=== PATIENT | male | born 1995 | race African-American/Black ===

== ENCOUNTER 2017-11-09 17:09 | Emergency (ER) | payer SELFPAY ==
[2017-11-09] MEDS ORDERED: ACETAMINOPHEN 500 MG TAB ONE (17:51)
--- NOTE | 2017-11-09 18:51 | EDPHYS ---
Physician Documentation [facility] Name: Freddy Leary Age: 22 yrs Sex: Male : 1995 Arrival Date: 11/09/2017 Time: 17:13 Bed 25 Private MD: TIBURCIO BARCLAY ED Physician Danis Mckeon HPI: 11/09 17:45 This 22 yrs old Black Male presents to ER via Ambulatory with complaints of BODY ACHES, cp Sore Throat. 17:45 The patient presents with sore throat, dysphagia, of both solids and liquids. cp 17:45 The patient describes throat pain as constant. Onset: The symptoms/episode cp began/occurred yesterday. Severity of symptoms: in the emergency department the symptoms are unchanged, despite home interventions. Associated signs and symptoms: Pertinent positives: fever, body aches, Pertinent negatives chest pain, cough, vomiting. Historical: - Allergies: 17:26 No Known Allergies; aj - Home Meds: 17:26 lisinopril Oral [Active]; aj - PMHx: 17:26 Hypertension; aj - PSHx: 17:26 None; aj - Immunization history:: Adult Immunizations up to date. - Social history:: Smoking status: Patient/guardian denies using tobacco. - Ebola Screening: : Patient negative for fever greater than or equal to 101.5 degrees Fahrenheit, and additional compatible Ebola Virus Disease symptoms Patient denies exposure to infectious person Patient denies travel to an Ebola-affected area in the 21 days before illness onset No symptoms or risks identified at this time. ROS: 17:58 Constitutional: Positive for fever, Negative for body aches, poor PO intake. cp 17:58 Eyes: Negative for injury, pain, redness, and discharge. cp 17:58 ENT: Positive for difficulty swallowing, hoarseness, sore throat, Negative for drainage from ear(s), ear pain, difficulty handling secretions. 17:58 Neck: Negative for pain with movement, pain at rest, stiffness. 17:58 Cardiovascular: Negative for chest pain. 17:58 Respiratory: Negative for cough, shortness of breath, wheezing. 17:58 Abdomen/GI: Negative for abdominal pain, vomiting, diarrhea, constipation. 17:58 Skin: Negative for cellulitis, rash. 17:58 Neuro: Negative for altered mental status, dizziness, headache, weakness. 17:58 All other systems are negative. Exam: 18:05 Constitutional: The patient appears in no acute distress, alert, awake, non-toxic, well cp developed, well nourished. 18:05 Head/Face: Normocephalic, atraumatic. cp 18:05 Eyes: Periorbital structures: appear normal, Conjunctiva: normal, no exudate, no injection, Sclera: no appreciated abnormality, Lids and lashes: appear normal, bilaterally. 18:05 ENT: External ear(s): are unremarkable, Ear canal(s): are normal, clear, TM's: bulging, is not appreciated, bilaterally, dullness, bilaterally, erythema, is not appreciated, bilaterally, Nose: is normal, Mouth: Lips: moist, Oral mucosa: moist, Posterior pharynx: Airway: no evidence of obstruction, patent, Tonsils: bilaterally enlarged, with erythema, with exudate, Uvula: midline, erythema, that is moderate, Voice: is hoarse. 18:05 Neck: ROM/movement: is normal, is supple, no range of motions limitations, no meningismus, no nuchal rigidity. 18:05 Chest/axilla: Inspection: normal, Palpation: is normal, no crepitus, no tenderness. 18:05 Cardiovascular: Rate: tachycardic, Rhythm: regular. 18:05 Respiratory: the patient does not display signs of respiratory distress, Respirations: normal, no use of accessory muscles, no retractions, no splinting, no tachypnea, labored breathing, is not present, Breath sounds: are clear throughout, no decreased breath sounds, no stridor, no wheezing. 18:05 Abdomen/GI: Inspection: abdomen appears normal, Palpation: abdomen is soft and non-tender, in all quadrants, rebound tenderness, is not appreciated, voluntary guarding, is not appreciated, involuntary guarding, is not appreciated. 18:05 Skin: cellulitis, is not appreciated, no rash present. Vital Signs: 17:26 BP 156 / 100; Pulse 116; Resp 20; Temp 101.3; Pulse Ox 99% on R/A; Weight 108.86 kg; aj Height 6 ft. 0 in. (182.88 cm); 18:54 BP 148 / 88; Pulse 115; Resp 18; Pulse Ox 99% ; tl3 17:26 Body Mass Index 32.55 (108.86 kg, 182.88 cm) MDM: 17:28 Patient medically screened. cp 18:00 Differential diagnosis: cornelio-cisneros virus, luna's angina, mononucleosis, cp pharyngitis, tonsillitis, uvulitis. 18:48 Data reviewed: vital signs, nurses notes, lab test result(s), and as a result, I will cp discharge patient. 18:48 Response to treatment: the patient's symptoms have mildly improved after treatment, and cp as a result, I will discharge patient. 11/09 17:28 Order name: Strep; Complete Time: 18:02 11/09 18:02 Interpretation: Reviewed. 11/09 18:04 Order name: Throat Culture EDRI 11/09 18:16 Order name: PO challenge; Complete Time: 19:19 cp 11/09 18:41 Order name: Vital Signs: please update to include temp; Complete Time: 19:19 cp Administered Medications: 17:52 Drug: Tylenol 1000 mg Route: PO; tl3 Disposition: 11/10 06:51 Co-signature as Attending Physician, Danis Mckeon MD I agree with the assessment and [facility] plan of care. Disposition: 11/09/17 18:50 Discharged to Home. Impression: Acute tonsillitis, unspecified. - Condition is Stable. - Discharge Instructions: Tonsillitis. - Prescriptions for Ibuprofen 800 mg Oral Tablet - take 1 tablet by ORAL route every 8 hours As needed take with food; 30 tablet. Augmentin 875- 125 mg Oral Tablet - take 1 tablet by ORAL route every 12 hours for 10 days; 20 tablet. - Medication Reconciliation Form, Thank You Letter, Antibiotic Education, Prescription Opioid Use, Work release form form. - Follow up: TIBURCIO BARCLAY; When: 48 Hours; Reason: Recheck today's complaints. - Problem is new. - Symptoms have improved. Signatures: Dispatcher [employer] EDRI Anna Jameson RN RN aj Anderson, Corey, MD MD cha Page, Corey, PA PA cp Lowrey, Tammy, RN RN tl3 Corrections: (The following items were deleted from the chart) 11/09 19:17 18:50 11/09/2017 18:50 Discharged to Home. Impression: Acute tonsillitis, unspecified. tl3 Condition is Stable. Forms are Medication Reconciliation Form, Thank You Letter, Antibiotic Education, Prescription Opioid Use. Follow up: TIBURCIO BARCLAY; When: 48 Hours; Reason: Recheck today's complaints. Problem is new. Symptoms have improved. cp
--- NOTE | 2017-11-09 18:51 | ER ---
Nurse's Notes [facility] Name: Freddy Leary Age: 22 yrs Sex: Male : 1995 Arrival Date: 11/09/2017 Time: 17:13 Bed 25 Private MD: TIBURCIO BARCLAY Diagnosis: Acute tonsillitis, unspecified Presentation: 11/09 17:25 Presenting complaint: Patient states: Sore throat with white exudate on bilateral aj tonsils since yesterday. Transition of care: patient was not received from another setting of care. Onset of symptoms was November 08, 2017. Risk Assessment: Do you want to hurt yourself or someone else? Patient reports no desire to harm self or others. Initial Sepsis Screen: Does the patient meet any 2 criteria? No. Patient's initial sepsis screen is negative. Does the patient have a suspected source of infection? No. Patient's initial sepsis screen is negative. Care prior to arrival: None. 17:25 Method Of Arrival: Ambulatory aj 17:25 Acuity: AMY 4 aj Triage Assessment: 17:26 General: Appears in no apparent distress. uncomfortable, Behavior is calm, cooperative, aj appropriate for age. Pain: Complains of pain in left aspect of posterior pharynx and right aspect of posterior pharynx. EENT: Throat is reddened has patchy exudate has enlarged tonsils bilaterally Reports pain when swallowing. Respiratory: Airway is patent Respiratory effort is even, unlabored, Respiratory pattern is regular, symmetrical. Derm: Skin is intact, is healthy with good turgor, Skin is pink, warm \T\ dry. normal. Historical: - Allergies: 17:26 No Known Allergies; aj - Home Meds: 17:26 lisinopril Oral [Active]; aj - PMHx: 17:26 Hypertension; aj - PSHx: 17:26 None; aj - Immunization history:: Adult Immunizations up to date. - Social history:: Smoking status: Patient/guardian denies using tobacco. - Ebola Screening: : Patient negative for fever greater than or equal to 101.5 degrees Fahrenheit, and additional compatible Ebola Virus Disease symptoms Patient denies exposure to infectious person Patient denies travel to an Ebola-affected area in the 21 days before illness onset No symptoms or risks identified at this time. Screenin:52 Abuse screen: Denies threats or abuse. Nutritional screening: No deficits noted. tl3 Tuberculosis screening: No symptoms or risk factors identified. Fall Risk None identified. Assessment: 17:52 General: Appears uncomfortable, slender, well groomed, well developed, well nourished, tl3 Behavior is calm, cooperative, appropriate for age. Pain: Complains of pain in mouth and right aspect of posterior pharynx and left aspect of posterior pharynx. Neuro: Level of Consciousness is awake, alert, obeys commands, Oriented to person, place, time, situation, Appropriate for age. Cardiovascular: Patient's skin is warm and dry. Respiratory: Airway is patent Respiratory effort is even, unlabored, Respiratory pattern is regular, symmetrical. GI: No deficits noted. : No deficits noted. EENT: Throat is reddened for two days. Derm: No signs and/or symptoms reported regarding the dermatologic system. Musculoskeletal: No signs and/or symptoms reported regarding the musculoskeletal system. 18:54 Reassessment: Patient appears in no apparent distress at this time. No changes from tl3 previously documented assessment. Patient and/or family updated on plan of care and expected duration. Pain level reassessed. Patient is alert, oriented x 3, equal unlabored respirations, skin warm/dry/pink. pt feeling better since fever has resolved. General:. 19:18 Respiratory: Breath sounds are clear bilaterally. tl3 Vital Signs: 17:26 BP 156 / 100; Pulse 116; Resp 20; Temp 101.3; Pulse Ox 99% on R/A; Weight 108.86 kg; aj Height 6 ft. 0 in. (182.88 cm); 18:54 BP 148 / 88; Pulse 115; Resp 18; Pulse Ox 99% ; tl3 17:26 Body Mass Index 32.55 (108.86 kg, 182.88 cm) ED Course: 17:13 Patient arrived in ED. 4 17:13 TIBURCIO BARCLAY is Private Physician. 4 17:26 Triage completed. aj 17:26 Arm band placed on left wrist. Patient placed in an exam room. Labs ordered per protocol. 17:28 Danis Hernandez PA is PHCP. cp 17:28 Danis Mckeon MD is Attending Physician. cp 17:47 Anni Steward RN is Primary Nurse. tl3 17:52 Patient has correct armband on for positive identification. Bed in low position. Call tl3 light in reach. Side rails up X 1. Adult w/ patient. Door closed. Lights dimmed. Warm blanket given. 17:52 No provider procedures requiring assistance completed. Patient did not have IV access tl3 during this emergency room visit. 18:50 TIBURCIO BARCLAY is Referral Physician. cp 19:19 Throat Culture Sent. tl3 Administered Medications: 17:52 Drug: Tylenol 1000 mg Route: PO; tl3 Outcome: 18:50 Discharge ordered by MD. cp 19:17 Patient left the ED. tl3 19:18 Discharged to home ambulatory. tl3 19:18 Condition: stable 19:18 Discharge instructions given to patient, family, Instructed on discharge instructions, follow up and referral plans. medication usage, Demonstrated understanding of instructions, follow-up care, medications, Prescriptions given X 2. Signatures: Anna Jameson RN RN Danis Valdes PA PA cp Garcia, Rubi rg4 Anni Steward RN RN tl3 Corrections: (The following items were deleted from the chart) 17:56 17:52 EENT: Throat is reddened tl3 tl3
== END 2017-11-09 19:17 | disposition home or self-care (01) ==
LOC: ER 17:09
DX: J03.90 Acute tonsillitis, unspecified (principal); I10 Essential (primary) hypertension
CPT/HCPCS: 87070; 87081; 99283

== ENCOUNTER 2018-03-06 14:55 | Emergency (ER) | payer SELFPAY ==
[2018-03-06] MEDS ORDERED: PROMETHAZINE 25 MG/ML VIAL ONE ×2 (16:30→16:35)
[2018-03-06] MEDS ORDERED: KETOROLAC 30 MG/ML INJ ONE ×2 (16:31→16:33)
--- NOTE | 2018-03-06 16:45 | ER ---
Nurse's Notes [facility] Name: Freddy Leary Age: 22 yrs Sex: Male : 1995 Arrival Date: 03/06/2018 Time: 14:59 Bed 10 Private MD: TIBURCIO BARCLAY Diagnosis: Essential (primary) hypertension;Acute contact otitis externa Presentation: 03/06 15:13 Presenting complaint: Patient states: "I've been taking Aleve for left ear pain but my aa5 blood pressure has been high so I started taking my Lisinopril again". Pt reports last dose of Lisinopril was today at 1000. Pt states "I have a headache and I am dizzy". Transition of care: patient was not received from another setting of care. Onset of symptoms was March 06, 2018. Risk Assessment: Do you want to hurt yourself or someone else? Patient reports no desire to harm self or others. Initial Sepsis Screen: Does the patient meet any 2 criteria? No. Patient's initial sepsis screen is negative. Does the patient have a suspected source of infection? No. Patient's initial sepsis screen is negative. Care prior to arrival: None. 15:13 Method Of Arrival: Ambulatory aa5 15:13 Acuity: AMY 3 aa5 Historical: - Allergies: 15:15 No Known Allergies; aa5 - PMHx: 15:15 Hypertension; aa5 - PSHx: 15:15 None; aa5 - Immunization history:: Adult Immunizations up to date. - Social history:: Smoking status: Patient/guardian denies using tobacco. - Ebola Screening: : No symptoms or risks identified at this time. Screenin:25 Abuse screen: Denies threats or abuse. Denies injuries from another. Nutritional sg screening: No deficits noted. Tuberculosis screening: No symptoms or risk factors identified. Never had TB. Fall Risk None identified. Assessment: 15:50 General: Appears in no apparent distress. comfortable, well groomed, well developed, sg well nourished, Behavior is calm, cooperative, appropriate for age. Pain: Complains of pain in right ear Quality of pain is described as throbbing. Neuro: No deficits noted. Cardiovascular: Patient's skin is warm and dry. Chest pain is denied. Respiratory: Respiratory effort is even, unlabored, Respiratory pattern is regular, symmetrical. GI: No signs and/or symptoms were reported involving the gastrointestinal system. : No signs and/or symptoms were reported regarding the genitourinary system. EENT: Ear canal clear on right ear and left ear Oral mucosa is moist. Throat is pink Reports pain in right ear. Derm: No signs and/or symptoms reported regarding the dermatologic system. Musculoskeletal: No signs and/or symptoms reported regarding the musculoskeletal system. Vital Signs: 15:15 BP 164 / 95; Pulse 96; Resp 18 S; Temp 97.6(TE); Pulse Ox 99% on R/A; Weight 108.86 kg aa5 (R); Height 6 ft. 0 in. (182.88 cm) (R); Pain 8/10; 15:15 Body Mass Index 32.55 (108.86 kg, 182.88 cm) aa5 ED Course: 14:59 Patient arrived in ED. mr 15:00 TIBURCIO BARCLAY is Private Physician. mr 15:14 Triage completed. aa5 15:14 Arm band placed on. aa5 15:29 James Jean-Baptiste RN is Primary Nurse. sg 15:37 [facility] snw 15:37 Danis Mckeon MD is Attending Physician. snw 16:40 No provider procedures requiring assistance completed. Strep swab sent to lab. Patient sg did not have IV access during this emergency room visit. Administered Medications: 16:42 Drug: Phenergan 25 mg Route: IM; Site: right deltoid; sg 17:01 Follow up: Response: No adverse reaction sg 16:42 Drug: TORadol 60 mg Route: IM; Site: left deltoid; sg 17:01 Follow up: Response: No adverse reaction sg Outcome: 16:45 Discharge ordered by . snw 17:32 Patient left the ED. sg Signatures: James Jean-Baptiste RN RN sg Therrien, Shelly, FNP-C FNP-Akosua GarveyaPricilla Audri, RN RN aa5
--- NOTE | 2018-03-06 16:45 | EDPHYS ---
Physician Documentation [facility] Name: Freddy Leary Age: 22 yrs Sex: Male : 1995 Arrival Date: 03/06/2018 Time: 14:59 Bed 10 Private MD: TIBURCIO BARCLAY ED Physician Danis Mckeon HPI: 03/06 17:00 This 22 yrs old Black Male presents to ER via Ambulatory with complaints of Ear Pain, snw Dizziness, High Blood Pressure. 17:00 The patient presents with pain, moderate, tenderness. The complaints affect the left snw ear. Onset: The symptoms/episode began/occurred 3 day(s) ago, and became persistent. Associated signs and symptoms: Pertinent positives: increased blood pressure, lightheadedness. Severity of symptoms: At their worst the symptoms were moderate. It is unknown whether or not the patient has had similar symptoms in the past. Pt had not been taking his Lisinopril. Restarted it today and states he has plenty at home to get to an appt with PCP. Historical: - Allergies: 15:15 No Known Allergies; aa5 - PMHx: 15:15 Hypertension; aa5 - PSHx: 15:15 None; aa5 - Immunization history:: Adult Immunizations up to date. - Social history:: Smoking status: Patient/guardian denies using tobacco. - Ebola Screening: : No symptoms or risks identified at this time. ROS: 16:59 Constitutional: Negative for fever, chills, and weight loss, Eyes: Negative for injury, snw pain, redness, and discharge. 16:59 Neck: Negative for injury, pain, and swelling, Cardiovascular: Negative for chest pain, palpitations, and edema, Respiratory: Negative for shortness of breath, cough, wheezing, and pleuritic chest pain, Abdomen/GI: Negative for abdominal pain, nausea, vomiting, diarrhea, and constipation, Back: Negative for injury and pain, : Negative for injury, bleeding, discharge, and swelling, MS/Extremity: Negative for injury and deformity, Skin: Negative for injury, rash, and discoloration. 16:59 ENT: Positive for ear pain. 16:59 Neuro: Positive for headache, increased blood pressure. Exam: 16:57 Constitutional: This is a well developed, well nourished patient who is awake, alert, snw and in no acute distress. Head/Face: Normocephalic, atraumatic. Eyes: Pupils equal round and reactive to light, extra-ocular motions intact. Lids and lashes normal. Conjunctiva and sclera are non-icteric and not injected. Cornea within normal limits. Periorbital areas with no swelling, redness, or edema. Neck: Trachea midline, no thyromegaly or masses palpated, and no cervical lymphadenopathy. Supple, full range of motion without nuchal rigidity, or vertebral point tenderness. No Meningismus. Chest/axilla: Normal chest wall appearance and motion. Nontender with no deformity. No lesions are appreciated. Cardiovascular: Regular rate and rhythm with a normal S1 and S2. No gallops, murmurs, or rubs. Normal PMI, no JVD. No pulse deficits. Respiratory: Lungs have equal breath sounds bilaterally, clear to auscultation and percussion. No rales, rhonchi or wheezes noted. No increased work of breathing, no retractions or nasal flaring. Abdomen/GI: Soft, non-tender, with normal bowel sounds. No distension or tympany. No guarding or rebound. No evidence of tenderness throughout. Back: No spinal tenderness. No costovertebral tenderness. Full range of motion. Skin: Warm, dry with normal turgor. Normal color with no rashes, no lesions, and no evidence of cellulitis. MS/ Extremity: Pulses equal, no cyanosis. Neurovascular intact. Full, normal range of motion. Neuro: Awake and alert, GCS 15, oriented to person, place, time, and situation. Cranial nerves II-XII grossly intact. Motor strength 5/5 in all extremities. Sensory grossly intact. Cerebellar exam normal. Normal gait. Psych: Awake, alert, with orientation to person, place and time. Behavior, mood, and affect are within normal limits. 16:57 ENT: TM's: not visable, because of cerumen, because of discharge, to left, Examination of the other ear shows no obvious abnormality, Nose: is normal, Mouth: is normal, Posterior pharynx: erythema, that is mild, that is moderate, Voice: is normal. Vital Signs: 15:15 BP 164 / 95; Pulse 96; Resp 18 S; Temp 97.6(TE); Pulse Ox 99% on R/A; Weight 108.86 kg aa5 (R); Height 6 ft. 0 in. (182.88 cm) (R); Pain 8/10; 15:15 Body Mass Index 32.55 (108.86 kg, 182.88 cm) aa5 MDM: 15:44 Patient medically screened. monster 16:58 Data reviewed: vital signs, nurses notes. Data interpreted: Pulse oximetry: on room air snw is 99 %. Interpretation: normal. Counseling: I had a detailed discussion with the patient and/or guardian regarding: the historical points, exam findings, and any diagnostic results supporting the discharge/admit diagnosis, the presence of at least one elevated blood pressure reading (>120/80) during this emergency department visit, lab results, the need for outpatient follow up, to return to the emergency department if symptoms worsen or persist or if there are any questions or concerns that arise at home. Special discussion: I have referred the patient to see his PCP for further evaluation of high blood pressure. Based on the history and exam findings, there is no indication for further emergent testing or inpatient evaluation. I discussed with the patient/guardian the need to see the ENT specialist for further evaluation of the symptoms. I discussed with the patient/guardian the need to see the primary care provider for further evaluation of the symptoms. 03/06 16:11 Order name: Strep; Complete Time: 17:02 snw 03/06 16:58 Order name: Throat Culture EDMS Administered Medications: 16:42 Drug: Phenergan 25 mg Route: IM; Site: right deltoid; sg 17:01 Follow up: Response: No adverse reaction sg 16:42 Drug: TORadol 60 mg Route: IM; Site: left deltoid; sg 17:01 Follow up: Response: No adverse reaction sg Disposition: 17:55 Co-signature as Attending Physician, Danis Mckeon MD I agree with the assessment and [facility] plan of care. Disposition: 03/06/18 16:45 Discharged to Home. Impression: Essential (primary) hypertension, Acute contact otitis externa. - Condition is Stable. - Discharge Instructions: Otitis Externa, Hypertension, How to Take Your Blood Pressure, Ansp-gh-Sduv, DASH Eating Plan, Rehydration, Adult, Heat Therapy, Managing Your Hypertension. - Prescriptions for Ciprodex 0.3- 0.1 % Otic Drops, Suspension - instill 4 drop by OTIC route every 12 hours for 7 days , for ears ONLY; 1 Container. Tylenol- Codeine #3 300-30 mg Oral Tablet - take 2 tablet by ORAL route every 6 hours As needed; 6 tablet. - Work release form, Medication Reconciliation Form, Thank You Letter, Antibiotic Education, Prescription Opioid Use form. - Follow up: Private Physician; When: 2 - 3 days; Reason: Recheck today's complaints, Continuance of care, Re-evaluation by your physician. Follow up: Emergency Department; When: As needed; Reason: Worsening of condition. - Notes: Please continue Lisinopril as directed Signatures: Dispatcher [employer] EDMS James Jean-Baptiste RN RN Danis Lauren MD MD cha Therrien, Shelly, CONTACT CENTER REP-C CONTACT CENTER REP-Csnw Keyla Arango, RN RN aa5 Corrections: (The following items were deleted from the chart) 17:32 16:45 03/06/2018 16:45 Discharged to Home. Impression: Essential (primary) sg hypertension; Acute contact otitis externa. Condition is Stable. Forms are Medication Reconciliation Form, Thank You Letter, Antibiotic Education, Prescription Opioid Use. Follow up: Private Physician; When: 2 - 3 days; Reason: Recheck today's complaints, Continuance of care, Re-evaluation by your physician. Follow up: Emergency Department; When: As needed; Reason: Worsening of condition. snw
== END 2018-03-06 17:32 | disposition home or self-care (01) ==
LOC: ER 14:55
DX: H60.539 Acute contact otitis externa, unspecified ear (principal); I10 Essential (primary) hypertension
CPT/HCPCS: 87070; 87081; 96372; 99283; J2550

== ENCOUNTER 2018-12-20 20:40 | Emergency (ER) | payer SELFPAY ==
[2018-12-20] MEDS ORDERED: KETOROLAC 30 MG/ML INJ ONE (20:58)
--- NOTE | 2018-12-20 21:21 | EDPHYS ---
Physician Documentation [facility] Name: Freddy Leary Age: 23 yrs Sex: Male : 1995 Arrival Date: 12/20/2018 Time: 20:43 Bed 23 Private MD: ED Physician Dionicio Todd HPI: 12/20 21:32 This 23 yrs old Black Male presents to ER via Ambulatory with complaints of Back Pain. kb 21:32 The patient presents with pain that is acute. The symptoms are located in the low back. kb Onset: The symptoms/episode began/occurred today. The pain does not radiate. Associated signs and symptoms: The patient has no apparent associated signs or symptoms. The problem was sustained when lifting heavy object. Modifying factors: The patient symptoms are alleviated by nothing, the patient symptoms are aggravated by any movement. Severity of symptoms: At their worst the symptoms were mild, moderate, in the emergency department the symptoms are unchanged. The patient has not experienced similar symptoms in the past. The patient has not recently seen a physician. Pt reports low back pain after lifting a heavy pipe multiple times today at work. Historical: - Allergies: 20:59 No Known Allergies; ss - Home Meds: 20:59 None [Active]; ss - PMHx: 20:59 Hypertension; ss - PSHx: 20:59 None; ss - Immunization history:: Adult Immunizations up to date. - Social history:: Smoking status: Patient/guardian denies using tobacco. - Ebola Screening: : Patient denies exposure to infectious person Patient denies travel to an Ebola-affected area in the 21 days before illness onset. ROS: 21:28 Constitutional: Negative for fever, chills, and weight loss, Cardiovascular: Negative kb for chest pain, palpitations, and edema, Respiratory: Negative for shortness of breath, cough, wheezing, and pleuritic chest pain, Abdomen/GI: Negative for abdominal pain, nausea, vomiting, diarrhea, and constipation, : Negative for injury, bleeding, discharge, and swelling, MS/Extremity: Negative for injury and deformity, Skin: Negative for injury, rash, and discoloration, Neuro: Negative for headache, weakness, numbness, tingling, and seizure. 21:28 Back: Positive for pain at rest, pain with movement, of the low back area. Exam: 21:30 Constitutional: This is a well developed, well nourished patient who is awake, alert, kb and in no acute distress. Head/Face: Normocephalic, atraumatic. Neck: Trachea midline, no thyromegaly or masses palpated, and no cervical lymphadenopathy. Supple, full range of motion without nuchal rigidity, or vertebral point tenderness. No Meningismus. Chest/axilla: Normal chest wall appearance and motion. Nontender with no deformity. No lesions are appreciated. Cardiovascular: Regular rate and rhythm with a normal S1 and S2. No gallops, murmurs, or rubs. Normal PMI, no JVD. No pulse deficits. Respiratory: Lungs have equal breath sounds bilaterally, clear to auscultation and percussion. No rales, rhonchi or wheezes noted. No increased work of breathing, no retractions or nasal flaring. Abdomen/GI: Soft, non-tender, with normal bowel sounds. No distension or tympany. No guarding or rebound. No evidence of tenderness throughout. Skin: Warm, dry with normal turgor. Normal color with no rashes, no lesions, and no evidence of cellulitis. MS/ Extremity: Pulses equal, no cyanosis. Neurovascular intact. Full, normal range of motion. Neuro: Awake and alert, GCS 15, oriented to person, place, time, and situation. Cranial nerves II-XII grossly intact. Motor strength 5/5 in all extremities. Sensory grossly intact. Cerebellar exam normal. Normal gait. 21:30 Back: pain, that is mild, of the low back area, ROM is normal, normal spinal alignment noted. Vital Signs: 20:55 BP 169 / 101; Pulse 94; Resp 18; Pulse Ox 95% ; ea 20:59 Weight 106.59 kg; Height 6 ft. 0 in. (182.88 cm); Pain 8/10; ss 20:59 Body Mass Index 31.87 (106.59 kg, 182.88 cm) ss MDM: 20:52 Patient medically screened. kb 21:27 Data reviewed: vital signs, nurses notes. Data interpreted: Pulse oximetry: on room air kb is 95 %. Interpretation: normal. Counseling: I had a detailed discussion with the patient and/or guardian regarding: the historical points, exam findings, and any diagnostic results supporting the discharge/admit diagnosis, the need for outpatient follow up, a family practitioner, to return to the emergency department if symptoms worsen or persist or if there are any questions or concerns that arise at home. Administered Medications: 21:02 Drug: TORadol 30 mg Route: IM; Site: right deltoid; ea 21:30 Follow up: Response: No adverse reaction; Pain is decreased ea Disposition: 12/21 02:22 Co-signature as Attending Physician, Dionicio Todd MD. rn Disposition: 12/20/18 21:20 Discharged to Home. Impression: Low back pain. - Condition is Stable. - Discharge Instructions: Back Injury Prevention, [id number], Back Pain, Adult, [id number], Back Exercises, [id number]. - Prescriptions for Cyclobenzaprine 10 mg Oral Tablet - take 1 tablet by ORAL route every 8 hours As needed; 21 tablet. Diclofenac Sodium 75 mg Oral Tablet, Delayed Release (E.C.) - take 1 tablet by ORAL route 2 times per day As needed; 30 tablet. - Medication Reconciliation Form, Thank You Letter, Antibiotic Education, Prescription Opioid Use, Family Work Release, Work release form form. - Follow up: Emergency Department; When: As needed; Reason: Worsening of condition. Follow up: Private Physician; When: 2 - 3 days; Reason: Recheck today's complaints, Continuance of care, Re-evaluation by your physician. Signatures: Patricia Araiza, [employer]-C [employer]-Dionicio Bautista MD MD rn Smirch, Shelby, RN RN ss Antunez, Elena, RN RN ea Corrections: (The following items were deleted from the chart) 12/20 21:45 21:20 12/20/2018 21:20 Discharged to Home. Impression: Low back pain. Condition is ea Stable. Forms are Medication Reconciliation Form, Thank You Letter, Antibiotic Education, Prescription Opioid Use. Follow up: Emergency Department; When: As needed; Reason: Worsening of condition. Follow up: Private Physician; When: 2 - 3 days; Reason: Recheck today's complaints, Continuance of care, Re-evaluation by your physician. kb
--- NOTE | 2018-12-20 21:21 | ER ---
Nurse's Notes [facility] Name: Freddy Leary Age: 23 yrs Sex: Male : 1995 Arrival Date: 12/20/2018 Time: 20:43 Bed 23 Private MD: Diagnosis: Low back pain Presentation: 12/20 20:57 Presenting complaint: Patient states: low back pain after picking up a heavy pipe today ss at work. Transition of care: patient was not received from another setting of care. Onset of symptoms was December 20, 2018. Risk Assessment: Do you want to hurt yourself or someone else? Patient reports no desire to harm self or others. Initial Sepsis Screen: Does the patient meet any 2 criteria? No. Patient's initial sepsis screen is negative. Does the patient have a suspected source of infection? No. Patient's initial sepsis screen is negative. Care prior to arrival: None. 20:57 Method Of Arrival: Ambulatory ss 20:57 Acuity: AMY 5 ss Historical: - Allergies: 20:59 No Known Allergies; ss - Home Meds: 20:59 None [Active]; ss - PMHx: 20:59 Hypertension; ss - PSHx: 20:59 None; ss - Immunization history:: Adult Immunizations up to date. - Social history:: Smoking status: Patient/guardian denies using tobacco. - Ebola Screening: : Patient denies exposure to infectious person Patient denies travel to an Ebola-affected area in the 21 days before illness onset. Screenin:05 Abuse screen: Denies threats or abuse. Nutritional screening: No deficits noted. ea Tuberculosis screening: No symptoms or risk factors identified. Fall Risk None identified. Assessment: 21:04 General: Appears uncomfortable, Behavior is calm, cooperative, appropriate for age. ea Pain: Complains of pain in back. Neuro: Level of Consciousness is awake, alert, obeys commands, Oriented to person, place, time, situation. Respiratory: Airway is patent Respiratory effort is even, unlabored, Respiratory pattern is regular, symmetrical. Derm: Skin is pink, warm \T\ dry. 21:43 Reassessment: Patient and/or family updated on plan of care and expected duration. Pain ea level reassessed. Patient is alert, oriented x 3, equal unlabored respirations, skin warm/dry/pink. Discharge instruction given to patient, verbalized the understanding of instruction. Pt left ED ambulatory, pt tolerating well Patient states feeling better. Vital Signs: 20:55 BP 169 / 101; Pulse 94; Resp 18; Pulse Ox 95% ; ea 20:59 Weight 106.59 kg; Height 6 ft. 0 in. (182.88 cm); Pain 8/10; ss 20:59 Body Mass Index 31.87 (106.59 kg, 182.88 cm) ED Course: 20:43 Patient arrived in ED. ag3 20:51 Patricia Araiza FNP-C is [facility]. kb 20:51 Dionicio Todd MD is Attending Physician. kb 20:55 Apolonia Anthony, AMINAH is Primary Nurse. ea 20:58 Triage completed. ss 20:59 Arm band placed on right wrist. ss 21:06 Patient has correct armband on for positive identification. Bed in low position. Call ea light in reach. 21:44 No provider procedures requiring assistance completed. Patient did not have IV access ea during this emergency room visit. Administered Medications: 21:02 Drug: TORadol 30 mg Route: IM; Site: right deltoid; ea 21:30 Follow up: Response: No adverse reaction; Pain is decreased ea Outcome: 21:20 Discharge ordered by . kb 21:44 Discharged to home ambulatory. ea 21:44 Condition: improved 21:44 Discharge instructions given to patient, Instructed on discharge instructions, follow up and referral plans. medication usage, Demonstrated understanding of instructions, follow-up care, medications, Prescriptions given X 2. 21:45 Patient left the ED. ea Signatures: Patricia Araiza FNP-C FNP-Ckb Smirch, Shelby, RN RN Apolonia Anthony, RN RN Carine Coon ag3
== END 2018-12-20 21:45 | disposition home or self-care (01) ==
LOC: ER 20:40
DX: M54.5 Low back pain (principal); I10 Essential (primary) hypertension
CPT/HCPCS: 96372; 99283

== ENCOUNTER 2020-04-07 13:53 | Emergency (ER) | payer SELFPAY ==
--- OUTSIDE RECORDS SUMMARY | 2020-04-07 14:40 | XMS REPORT | Summary of Care ---
:1995 Author Organization [facility] Address [address] [place] [address] Care Team Providers Name Role Phone Pcp, Does Not Have A Primary Care Provider Reason for Referral MRI/CAT Scan (STAT) Status Reason Specialty Diagnoses / Referred By Referred To Procedures Contact Contact New Request Diagnostic Diagnoses Laceration of scalp, initial encounter Danish Black Radiology Procedures CT HEAD WO CONTRAST MD Radha [address] [address] Reason for Visit Reason Comments Laceration Auth/Cert Status Reason Specialty Diagnoses / Referred By Referred To Procedures Contact Contact Emergency Medicine Diagnoses head laceration [facility] Emergency Dept [address] [place] [address] Fax: Encounter Details Date Type Department Care Team Description 04/04/2020 Emergency [facility]Emergency Danish Black Laceratio n of scalp, initial encounter (Primary Dx); Department Contusion of scalp, initial encounter [address] [place] [address] [id number] [place], [place] [id number] Allergies No Known Allergiesdocumented as of this encounter (statuses as of 04/04/2020) Medications Medication Sig Dispensed Refills Start Date End Date Status ibuprofen 800 mg Take 1 tablet by 20 tablet 0 05/22/2019 Active tabletIndications: mouth every 8 Sore throat, Strep (eight) hours as pharyngitis needed for Pain (scale 4-6) or Temp > 38.5 C. amoxicillin 500 mg Take 1 capsule by 20 capsule 0 05/22/2019 Active capsuleIndications: mouth 3 (three) Sore throat, Strep times daily. pharyngitis ibuprofen 800 mg Take 1 tablet by 21 tablet 0 04/04/2020 Active tabletIndications: mouth every 8 Laceration of scalp, (eight) hours as initial encounter, needed for Pain Contusion of scalp, (scale 4-6). initial encounter documented as of this encounter (statuses as of 04/04/2020) Active Problems No known active problemsdocumented as of this encounter (statuses as of 04/04/2020) Immunizations Name Administration Dates Next Due Td 04/04/2020 documented as of this encounter Social History Tobacco Use Types Packs/Day Years Used Date Never Assessed Sex Assigned at Date Recorded Not on file COVID-19 Exposure Response Date Recorded In the last month, have you been in contact with No / Unsure 04/04/2020 1:19 AM MARINE CONSULTANT someone who was confirmed or suspected to have Coronavirus / COVID-19? documented as of this encounter Last Filed Vital Signs Vital Sign Reading Time Taken Comments Blood Pressure 160/88 04/04/2020 1:21 AM MARINE CONSULTANT Pulse 138 04/04/2020 1:21 AM MARINE CONSULTANT Temperature 37.4 C (99.3 F) 04/04/2020 1:22 AM MARINE CONSULTANT Respiratory Rate 20 04/04/2020 1:21 AM MARINE CONSULTANT Oxygen Saturation 96% 04/04/2020 1:21 AM MARINE CONSULTANT Inhaled Oxygen Concentration - - Weight 108.9 kg (240 lb) 04/04/2020 1:21 AM MARINE CONSULTANT Height 182.9 cm (6') 04/04/2020 1:21 AM MARINE CONSULTANT Body Mass Index 32.55 04/04/2020 1:21 AM MARINE CONSULTANT documented in this encounter Discharge Instructions Danish Cruz MD - 04/04/2020 DIAGNOSIS Diagnoses that have been ruled out: None Diagnoses that are still under consideration: None Final diagnoses: Laceration of scalp, initial encounter Contusion of scalp, initial encounter NO LIFE-THREATENING FINDINGS ON TODAY'S EXAM. PROCEDURES IN THE ER TODAY: Orders Placed This Encounter Procedures Laceration Repair CT HEAD WO CONTRAST MEDICATIONS ADMINISTERED IN THE ER TODAY AND DISCHARGE MEDICATIONS: Orders Placed This Encounter Medications tetanus-diphtheria toxoids (TENIVAC) 5-2 Lf unit/0.5 mL injection 0.5 mL ibuprofen 800 mg tablet FOLLOW-UP RECOMMENDATIONS: RECOMMEND FOLLOW-UP WITH YOUR PRIMARY CARE PROVIDER OR SPECIALIST IN 5 TO 7 DAYS, FOR SUTURE REMOVALAS DISCUSSED MAY FOLLOW-UP WITH A PROVIDER OF YOUR CHOICE, SUCH : 1. A PHYSICIAN OF YOUR CHOICE 2. [facility], . LOCATIONS IN [facility] 3. [facility], [address] [place] [address]; [phone] OR, IF YOU WISH TO FOLLOW-UP WITHIN THE [facility], MAY TRY THESE OPTIONS (CLINIC APPOINTMENTS AVAILABLE ON [id number] BASIS): 1. SCHEDULE AN APPOINTMENT ONLINE AT [email or web address] 2. OR CALL THE [facility] AT OR 3. OR CALL YOUR [facility] PHYSICIAN'S OFFICE DIRECTLY IF YOU ARE ALREADY AN ESTABLISHED [facility] PATIENT. RETURN TO ER FOR WORSENING OF SYMPTOMS AttachmentsThe following attachments cannot be sent through Care Everywhere. Scalp Contusion (Telugu)Laceration: All Closures (Telugu)documented in this encounter ED Notes Carolina Reynoso RN - 04/04/2020 1:19 AM CSTPatient presents to the ED with a laceration approximately 8cm long to the right side of his head. Patient states that he was getting something from the garage and it the item fell and hit his head. Patient states that he "blacked out". Patient reports have 5 beers tonight. Patient A&Ox4. Bleedingcontrolled at this time. Denies neck pain. NE CONSULTANT Danish Black MD - 04/04/2020 1:11 AM CST [facility] Emergency Department Note Patient Name: Freddy Leary Date of : 1995 25 year old male Treatment Room: TR8/8 Primary Care Physician: PATIENT DOES NOT HAVE A PCP Patient Escorted by: Self [9] Mode of Arrival: Personal means [1] EMS Treatment Prior to ED Arrival: LIQUOR [employer]ER treatment: None Travel and Exposure Screening: Symptoms Does patient have any of these symptoms?: (not recorded) Exposure Screening Has patient had contact with someone with a communicable disease in the last month?: (not recorded) Diseases exposed to:: (not recorded) Is Patient ?: (not recorded) Exposure Date: (not recorded) Chief Complaint: Chief Complaint Patient presents with Laceration History of Present Illness: Freddy Leary is a 25 year old male who presented to the ED for evaluation of laceration sustained to right scalp when an 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 Denies any loss of consciousness but reports that he was 'dazed". No N/V. No REYNAGA. No AMS. No focal neurologic deficits Past Medical History/Immunizations: No past medical history on file. Tetanus received in last 5 years: No Allergies: No Known Allergies Past Social History: Substance & Sexual Activity No substance use or sexual activity history on file. Past Surgical History: No past surgical history on file. Review of Systems: Review of Systems Constitutional: Negative. HENT: Negative. Negative for facial swelling. Eyes: Negative. Respiratory: Negative. Breasts: Negative. Cardiovascular: Negative. Gastrointestinal: Negative. Genitourinary: Negative. Musculoskeletal: Negative. Negative for arthralgias, back pain, gait problem, joint swelling, myalgias, neck pain and neck stiffness. Skin: Positive for wound. Neurological: Negative. Negative for dizziness, tremors, seizures, syncope, facial asymmetry, speech difficulty, weakness, light-headedness, numbness and headaches. Psychiatric/Behavioral: Negative. Endocrine: Endocrine negative Physical Exam: ED Triage Vitals Weight 04/04/20 012 108.9 kg (240 lb) Actual or estimated 04/04/20120 Estimated by patient/family report Height 04/04/20120 1.829 m (6') BP 04/04/20 012 (!) 160/88 Pulse 04/04/20120 138 Resp 04/04/201 20 Temp 04/04/20 012 37.4 C (99.3 F) Temp source 04/04/20120 Oral SpO2 04/04/20120 96 % Measured on 04/04/20120 Room air Physical Exam Vitals signs and nursing note reviewed. Constitutional: General: He is not in acute distress. Appearance: He is well-developed. He is obese. He is not ill-appearing or diaphoretic. HENT: Head: Normocephalic. Comments: Has a gaping 8 cm laceration to right temporofrontal scalp with active bleeding Right Ear: Tympanic membrane, ear canal and external ear normal. Left Ear: Tympanic membrane, ear canal and external ear normal. Nose: Nose normal. No congestion or rhinorrhea. Mouth/Throat: Mouth: Mucous membranes are moist. Pharynx: Oropharynx is clear. No oropharyngeal exudate or posterior oropharyngeal erythema. Eyes: General: No scleral icterus. Right eye: No discharge. Left eye: No discharge. Extraocular Movements: Extraocular movements intact. Conjunctiva/sclera: Conjunctivae normal. Pupils: Pupils are equal, round, and reactive to light. Neck: Musculoskeletal: Normal range of motion and neck supple. Cardiovascular: Rate and Rhythm: Normal rate and regular rhythm. Pulses: Normal pulses. Heart sounds: Normal heart sounds. No murmur. No gallop. Pulmonary: Effort: Pulmonary effort is normal. No respiratory distress. Breath sounds: Normal breath sounds. No stridor. No wheezing, rhonchi or rales. Chest: Chest wall: No tenderness. Abdominal: General: Bowel sounds are normal. There is no distension. Palpations: Abdomen is soft. There is no mass. Tenderness: There is no abdominal tenderness. There is no right CVA tenderness, left CVA tenderness, guarding or rebound. Hernia: No hernia is present. Musculoskeletal: Normal range of motion. General: No swelling, tenderness, deformity or signs of injury. Right lower leg: No edema. Left lower leg: No edema. Skin: General: Skin is warm and dry. Capillary Refill: Capillary refill takes less than 2 seconds. Coloration: Skin is not jaundiced or pale. Findings: Bruising and lesion present. No erythema. Neurological: General: No focal deficit present. Mental Status: He is alert and oriented to person, place, and time. Cranial Nerves: No cranial nerve deficit. Sensory: No sensory deficit. Motor: No weakness. Coordination: Coordination normal. Gait: Gait normal. Deep Tendon Reflexes: Reflexes normal. Psychiatric: Behavior: Behavior normal. Thought Content: Thought content normal. Judgment: Judgment normal. Radiology: Hospital Encounter on 04/04/20 CT HEAD WO CONTRAST Narrative Ordering physician: DANISH BLACK Indication: Minor head trauma Comparison: None Technique: Axial images of the head were performed without administration of intravenous contrast material. CT scan was performed according to ALARA (as low as reasonably achievable) principles. Findings: No acute intracranial abnormality is appreciated. Specifically, there is no acute intracranial hemorrhage, mass, mass effect, extra-axial fluid collection or hydrocephalus. The visualized paranasal sinuses are clear. No middle ear or mastoid effusion is appreciated. There is no calvarial fracture. There is a subcutaneous hematoma and laceration in the right parietal scalp, without radiopaque foreign body. Impression Impression: No CT evidence for acute intracranial abnormality. Subcutaneous hematoma and laceration in the right parietal scalp without radiopaque foreign body. RL: [id number] AFC: [id number] Lab Results (24h): No results found for this or any previous visit (from the past 24 hour(s)). Orders and Treatments: Orders Placed This Encounter Procedures Laceration Repair CT HEAD WO CONTRAST Orders Placed This Encounter Medications tetanus-diphtheria toxoids (TENIVAC) 5-2 Lf unit/0.5 mL injection 0.5 mL ibuprofen 800 mg tablet ED COURSE MDM: Freddy Leary is a 25 year old male presenting to the ED with scalp laceration. See procedurenote for laceration repair Scoring Tools: No data recorded Diagnosis/Impression: ICD-10-CM ICD-9-CM 1. Laceration of scalp, initial encounter S01.01XA 873.0 2. Contusion of scalp, initial encounter S00.03XA 920 Disposition/Condition: ED Disposition ED Disposition Condition Comment Disch - Home Stable Discharge Medications: Patient's Medications START taking these medications IBUPROFEN 800 MG TABLET Take 1 tablet by mouth every 8 (eight) hours as needed for Pain (scale 4-6). CONTINUE taking these medications which have NOT CHANGED AMOXICILLIN 500 MG CAPSULE Take 1 capsule by mouth 3 (three) times daily. IBUPROFEN 800 MG TABLET Take 1 tablet by mouth every 8 (eight) hours as needed for Pain (scale 4-6) or Temp > 38.5 C. START taking Modified Medications as Prescribed No medications on file STOP taking these medications No medications on file Follow-up: Electronically signed by: Danish Black MD 04/04/2020 2:44 AM NE CONSULTANT documented in this encounter Miscellaneous Notes ED Nurse Note - Carolina Reynoso RN - 04/04/2020 3:13 AM CSTPt given printed and verbal discharge instructions regarding laceration of scalp and contusion of scalp, encouraged hydration, Prescriptions provided for Ibuprofen. Discussed ibuprofen and to take with food to avoid GI distress. Pt verbalized understanding of instructions, pt awake alert oriented, resp reg unlabored, skin w/d, color appropriate for race, moves all ext well,pt encouraged to follow up with pcp in 5-7 days for suture removal. Advised to seek medical attention for new/prolonged/worsening of symptoms, Symptoms were addressed. No adverse reaction to meds given in ER noted upon discharge Awake, alert oriented, resp reg unlabored, skin w/d, pt leaving amb with steady gait, in no apparent distress, D Procedure Note - Danish Black MD - 04/04/2020 2:52 AM CSTAssociated Order(s): Laceration RepairLaceration Repair Performed by: Danish Black MD Authorized by: Danish Black MD Consent: Consent obtained: Verbal Consent given by: Patient Risks discussed: Infection, nerve damage, need for additional repair, poor cosmetic result, pain,poor wound healing, retained foreign body, tendon damage and vascular damage Alternatives discussed: No treatment Anesthesia (see MAR for exact dosages): Anesthesia method: Local infiltration Local anesthetic: Lidocaine 1% WITH epi Laceration details: Location: Scalp Scalp location: R temporal Length (cm): 8 Repair type: Repair type: Intermediate Pre-procedure details: Preparation: Patient was prepped and draped in usual sterile fashion and imaging obtained to evaluate for foreign bodies Exploration: Hemostasis achieved with: Epinephrine and direct pressure Wound extent: areolar tissue violated, fascia violated, muscle damage and vascular damage Wound extent: no foreign bodies/material noted, no nerve damage noted, no tendon damage noted and no underlying fracture noted Contaminated: no Treatment: Area cleansed with: Hibiclens and saline Amount of cleaning: Extensive Irrigation solution: Sterile saline Irrigation volume: 1000 Irrigation method: Pressure wash Visualized foreign bodies/material removed: no Skin repair: Repair method: Sutures Suture size: 1-0 Suture material: Prolene Suture technique: Simple interrupted Number of sutures: 8 Approximation: Approximation: Loose Post-procedure details: Dressing: Non-adherent dressing Patient tolerance of procedure: Tolerated well, no immediate complications NE CONSULTANT documented in this encounter Plan of Treatment Health Maintenance Due Date Last Done Comments VARICELLA VACCINES (1 of - 1994 2-dose childhood series) Depression Screening 2005 DTaP,Tdap,and Td Vaccines (1 - 2012 04/04/2020 Tdap) INFLUENZA VACCINE (#1) 2020 PNEUMOCOCCAL 0-64 YEARS COMBINED Aged Out No longer eligible based on SERIES patient's age to complete this topic documented as of this encounter Procedures Procedure Name Priority Date/Time Associated Diagnosis Comme nts TN LAYR CLOS WND Routine 04/04/2020 2:52 AM Resu lts for this TRUNK,ARM,LEG MARINE CONSULTANT procedure are in 7.6-12.[address] HEAD WO CONTRAST STAT 04/04/2020 1:32 AM Laceration of scalp, Results for this MARINE CONSULTANT initial encounter procedure are in the results section. documented in this encounter Results Laceration Repair (04/04/2020 2:52 AM MARINE CONSULTANT) Narrative Performed At Danish Black MD 04/04/2020 2:52 AM Laceration Repair Performed by: Danish Black MD Authorized by: Danish Black MD Consent: Consent obtained: Verbal Consent given by: Patient Risks discussed: Infection, nerve damage, need fo r additional repair, poor cosmetic result, pain, poor wound h ealing, retained foreign body, tendon damage and vascular damage Alternatives discussed: No treatmen t Anesthesia (see MAR for exact dosages): Anesthesia method: Local infiltrati on Local anesthetic: Lidocaine 1% WITH epi Laceration details: Location: Scalp Scalp location: R temporal Length (cm): 8 Repair type: Repair type: Intermediate Pre-procedure details: Preparation: Patient was prepped and draped in us ual sterile fashion and imaging obtained to evaluate for for eign bodies Exploration: Hemostasis achieved with: Epinephri ne and direct pressure Wound extent: areolar tissue violated, fascia viola rachel, muscle damage and vascular damage Wound extent: no foreign bodies/material noted, no nerve damage noted, no tendon damage noted and no underlying fracture noted Contaminated: no Treatment: Area cleansed with: Hibiclens and s gregg Amount of cleaning: Extensive Irrigation solution: Sterile saline Irrigation volume: 1000 Irrigation method: Pressure wash Visualized foreign bodies/material re moved: no Skin repair: Repair method: Sutures Suture size: 1-0 Suture material: Prolene Suture technique: Simple interrupte d Number of sutures: 8 Approximation: Approximation: Loose Post-procedure details: Dressing: Non-adherent dressing Patient tolerance of procedure: Andrea erated well, no immediate complications CT HEAD WO CONTRAST (04/04/2020 1:32 AM MARINE CONSULTANT) Specimen Impressions Performed At Impression: PACS/VR/DOSE No CT evidence for acute intracranial ab normality. Subcutaneous hematoma and laceration in the right parietal scalp without radiopaque foreign body. RL: [id number] AFC: [id number] Narrative Performed At Ordering physician: ADNISH BLACK PACS/VR/DOSE Indication: Minor head trauma Comparison: None Technique: Axial images of the head were performed wit hout administration of intravenous contrast material. CT scan was performe d according to ALARA (as low as reasonably achievable) princi ples. Findings: No acute intracranial abnormality is appreci ated. Specifically, there is no acute intracranial hemorrhage, mass, mass effect, extra-axial fluid collection or hydrocephalus. The v isualized paranasal sinuses are clear. No middle ear or mastoid effusion is appreciated. There is no calvarial fracture. There is a subcutaneous hematoma a nd laceration in the right parietal scalp, without radiopaque foreign body. Procedure Note [facility], Radiant Results Inft User - 2019 1:55 AM MARINE CONSULTANT Ordering physician: DANISH BLACK Indication: Minor head trauma Comparison: None Technique: Axial images of the head were performed without administration of intravenous contrast material. CT sca n was performed according to ALARA (as low as reasonably achievable) princi ples. Findings: No acute intracranial abnormal ity is appreciated. Specifically, there is no acute intracranial hemorrhag e, mass, mass effect, extra-axial fluid collection or hydrocephalus. The v isualized paranasal sinuses are clear. No middle ear or mastoid effusion is appreciated. There is no calvarial fracture. There is a subcutane ous hematoma and laceration in the right parietal scalp, without radiopaque foreign body. IMPRESSION Impression: No CT evidence for acute intracranial ab normality. Subcutaneous hematoma and laceration in the right parietal scalp without radiopaque foreign body. RL: 460 AFC: [id number] Performing Organization Address City/State/Zipcode Phone Number PACS/VR/DOSE documented in this encounter Visit Diagnoses Diagnosis Laceration of scalp, initial encounter - Primary Contusion of scalp, initial encounter documented in this encounter Administered Medications Medication Order MAR Action Action Date Dose Rate Site tetanus-diphtheria Given 04/04/2020 1:32 AM 0.5 mL Left Deltoid-IM toxoids (TENIVAC) 5-2 Lf MARINE CONSULTANT unit/0.5 mL injection 0.5 mL 0.5 mL, Intramuscular, ONCE, 1 dose, Tue04/04/20 at 0230, Routine documented in this encounter
--- OUTSIDE RECORDS SUMMARY | 2020-04-07 14:40 | XMS REPORT | Continuity of Care Document ---
:1995 Author Organization [facility] t Address [address] [place] [address] Care Team Providers Name Role Phone Abbie NOLAN S Attending Clinician Problems This patient has no known problems. Allergies, Adverse Reactions, Alerts This patient has no known allergies or adverse reactions. Medications This patient has no known medications. Procedures This patient has no known procedures. Encounters Start End Encounter Admission Attending Care Care Encounter Source Date/Time Date/Time Type Type Clinicians Facility Department ID 2020-04-04 2020-04-04 Emergency [facility] [id number] 01:19:00 04:22:00 Danish Lundberg [id number] [place] [id number] [place] [id number] Results This patient has no known results.
--- NOTE | 2020-04-07 15:15 | ER ---
Nurse's Notes [facility] Name: Freddy Leary Age: 25 yrs Sex: Male : 1995 Arrival Date: 04/07/2020 Time: 13:55 Bed 14 Private MD: Diagnosis: Superficial injury of head;Concussion Presentation: 04/07 14:09 Chief complaint: Patient states: got stitches in his head on , was seen at [facility], wheel part fell on top of his head, had a CT done and was d/c home, now is having migraines and wants to have his wound checked , and he had fever last night. Coronavirus screen: fever, headache. Ebola Screen: Patient negative for fever greater than or equal to 101.5 degrees Fahrenheit, and additional compatible Ebola Virus Disease symptoms Patient denies exposure to infectious person. Patient denies travel to an Ebola-affected area in the 21 days before illness onset. No symptoms or risks identified at this time. Initial Sepsis Screen: Does the patient meet any 2 criteria? No. Patient's initial sepsis screen is negative. Does the patient have a suspected source of infection? No. Patient's initial sepsis screen is negative. Risk Assessment: Do you want to hurt yourself or someone else? Patient reports no desire to harm self or others. Onset of symptoms was April 07, 2020. 14:09 Method Of Arrival: Ambulatory iw 14:09 Acuity: AMY 4 iw 14:17 Coronavirus screen: pt states he was positive for COVID 3-4 months ago. iw Historical: - Allergies: 14:13 No Known Allergies; iw - PMHx: 14:13 Hypertension; iw - PSHx: 14:13 None; iw - Immunization history:: Adult Immunizations. - Social history:: Smoking status: . Screenin:27 Abuse screen: Denies threats or abuse. Nutritional screening: No deficits noted. tw2 Tuberculosis screening: No symptoms or risk factors identified. Fall Risk None identified. Assessment: 14:15 General: Appears in no apparent distress. well groomed, Behavior is calm, cooperative, tw2 appropriate for age. General: "headache where my sutures were and its sore". Pain: Complains of pain in headache. Neuro: Level of Consciousness is awake, alert, obeys commands, Oriented to person, place, time, situation, Reports headache. Cardiovascular: Patient's skin is warm and dry. Respiratory: Airway is patent Respiratory effort is even, unlabored, Respiratory pattern is regular, symmetrical. GI: No signs and/or symptoms were reported involving the gastrointestinal system. : No signs and/or symptoms were reported regarding the genitourinary system. EENT: No signs and/or symptoms were reported regarding the EENT system. Derm: No signs and/or symptoms reported regarding the dermatologic system. Musculoskeletal: Range of motion: intact in all extremities. 14:53 Reassessment: Patient appears in no apparent distress at this time. No changes from tw2 previously documented assessment. Patient and/or family updated on plan of care and expected duration. Pain level reassessed. Patient is alert, oriented x 3, equal unlabored respirations, skin warm/dry/pink. 15:07 Reassessment: provider at bedside at this time. tw2 15:33 Reassessment: Patient appears in no apparent distress at this time. No changes from tw2 previously documented assessment. Patient and/or family updated on plan of care and expected duration. Pain level reassessed. Patient is alert, oriented x 3, equal unlabored respirations, skin warm/dry/pink. Vital Signs: 14:09 BP 149 / 108; Pulse 98; Resp 16; Temp 98.7; Pulse Ox 100% on R/A; Weight 108.86 kg; iw Height 6 ft. (182.88 cm); Pain 6/10; 14:53 BP 140 / 92; Pulse 86; Resp 17; Temp 98.3(O); Pulse Ox 100% on R/A; tw2 15:33 BP 133 / 90; Pulse 92; Resp 17; Pulse Ox 99% on R/A; tw2 14:09 Body Mass Index 32.55 (108.86 kg, 182.88 cm) iw [place] Coma Score: 15:41 Eye Response: spontaneous(4). Verbal Response: oriented(5). Motor Response: obeys snw commands(6). Total: 15. ED Course: 13:55 Patient arrived in ED. as 14:06 Mad[facility] Gilliland FNP-C [facility]. snw 14:06 Danis Mckeon MD is Attending Physician. snw 14:13 Triage completed. iw 14:13 Arm band placed on. iw 14:15 Bed in low position. Call light in reach. Pulse ox on. NIBP on. tw2 14:26 Deanne Roque, RN is Primary Nurse. tw2 14:36 Strep Sent. tw2 15:34 No provider procedures requiring assistance completed. Patient did not have IV access tw2 during this emergency room visit. Administered Medications: 15:30 Drug: UltRAM 50 mg {Note: RASS 0.} Route: PO; tw2 15:34 Follow up: Response: No adverse reaction; RASS: Alert and Calm (0) tw2 Outcome: 15:15 Discharge ordered by . snrufino 15:34 Discharged to home ambulatory. tw2 15:34 Condition: stable 15:34 Discharge instructions given to patient, Instructed on discharge instructions, follow up and referral plans. no drinking with medication, no driving heavy equipment, medication usage, Demonstrated understanding of instructions, follow-up care, medications, Prescriptions given X 2. 15:35 Patient left the ED. tw2 Signatures: Maday Gilliland, MINDY-C [employer] ASSEMBLER-Shikha Ortiz as Farideh Astorga RN RN Deanne Roque RN RN tw2
--- NOTE | 2020-04-07 15:15 | EDPHYS ---
Physician Documentation [facility] Name: Freddy Leary Age: 25 yrs Sex: Male : 1995 Arrival Date: 04/07/2020 Time: 13:55 Bed 14 Private MD: ED Physician Danis Mckeon HPI: 04/07 15:41 This 25 yrs old Black Male presents to ER via Ambulatory with complaints of Incision snw Problem, Headache, Fever. 15:41 The patient or guardian reports injury, a laceration. The complaints affect the right snw side of the back of head and right temporal area. Context of injury: The problem was sustained outdoors, resulted from a direct blow, a solid object. Onset: The symptoms/episode began/occurred suddenly, 5 day(s) ago, and became persistent. Severity of symptoms: At their worst the symptoms were severe, in the emergency department the symptoms have improved, moderately. The patient has not experienced similar symptoms in the past. 5 days ago. Historical: - Allergies: 14:13 No Known Allergies; iw - PMHx: 14:13 Hypertension; iw - PSHx: 14:13 None; iw - Immunization history:: Adult Immunizations. - Social history:: Smoking status: . ROS: 15:39 Constitutional: Negative for fever, chills, and weight loss, Eyes: Negative for injury, snw pain, redness, and discharge, ENT: Negative for injury, pain, and discharge, Neck: Negative for injury, pain, and swelling, Cardiovascular: Negative for chest pain, palpitations, and edema, Respiratory: Negative for shortness of breath, cough, wheezing, and pleuritic chest pain, Abdomen/GI: Negative for abdominal pain, diarrhea, and constipation, positive for nausea and vomiting Back: Negative for injury and pain, : Negative for injury, bleeding, discharge, and swelling, MS/Extremity: Negative for injury and deformity, Neuro: Negative for headache, weakness, numbness, tingling, and seizure, Psych: Negative for depression, anxiety, suicide ideation, homicidal ideation, and hallucinations. 15:39 Skin: Positive for laceration(s), of the right side of the back of head and right temporal area. Exam: 15:37 Constitutional: This is a well developed, well nourished patient who is awake, alert, snw and in no acute distress. Head/Face: Normocephalic, recent trauma to right parieto-occipital area. + sutures in place. + tenderness, mild edema, wound edges well approximated with sutures, no discharge, no increased warmth Eyes: Pupils equal round and reactive to light, extra-ocular motions intact. Lids and lashes normal. Conjunctiva and sclera are non-icteric and not injected. Cornea within normal limits. Periorbital areas with no swelling, redness, or edema. ENT: Nares patent. No nasal discharge, no septal abnormalities noted. Tympanic membranes are normal and external auditory canals are clear. Oropharynx with no redness, swelling, or masses, exudates, or evidence of obstruction, uvula midline. Mucous membranes moist. Neck: Trachea midline, no thyromegaly or masses palpated, and no cervical lymphadenopathy. Supple, full range of motion without nuchal rigidity, or vertebral point tenderness. No Meningismus. Chest/axilla: Normal chest wall appearance and motion. Nontender with no deformity. No lesions are appreciated. Cardiovascular: Regular rate and rhythm with a normal S1 and S2. No gallops, murmurs, or rubs. Normal PMI, no JVD. No pulse deficits. Respiratory: Lungs have equal breath sounds bilaterally, clear to auscultation and percussion. No rales, rhonchi or wheezes noted. No increased work of breathing, no retractions or nasal flaring. Abdomen/GI: Soft, non-tender, with normal bowel sounds. No distension or tympany. No guarding or rebound. No evidence of tenderness throughout. Back: No spinal tenderness. No costovertebral tenderness. Full range of motion. Skin: Warm, dry with normal turgor. Normal color with no rashes, no lesions, and no evidence of cellulitis. MS/ Extremity: Pulses equal, no cyanosis. Neurovascular intact. Full, normal range of motion. Neuro: Awake and alert, GCS 15, oriented to person, place, time, and situation. Cranial nerves II-XII grossly intact. Motor strength 5/5 in all extremities. Sensory grossly intact. Cerebellar exam normal. Normal gait. Psych: Awake, alert, with orientation to person, place and time. Behavior, mood, and affect are within normal limits. Vital Signs: 14:09 BP 149 / 108; Pulse 98; Resp 16; Temp 98.7; Pulse Ox 100% on R/A; Weight 108.86 kg; iw Height 6 ft. (182.88 cm); Pain 6/10; 14:53 BP 140 / 92; Pulse 86; Resp 17; Temp 98.3(O); Pulse Ox 100% on R/A; tw2 15:33 BP 133 / 90; Pulse 92; Resp 17; Pulse Ox 99% on R/A; tw2 14:09 Body Mass Index 32.55 (108.86 kg, 182.88 cm) iw [place] Coma Score: 15:41 Eye Response: spontaneous(4). Verbal Response: oriented(5). Motor Response: obeys snw commands(6). Total: 15. MDM: 14:16 Patient medically screened. [facility] 15:19 Data reviewed: vital signs, nurses notes. Data interpreted: Pulse oximetry: on room air snw is 100 %. Interpretation: normal. Counseling: I had a detailed discussion with the patient and/or guardian regarding: the historical points, exam findings, and any diagnostic results supporting the discharge/admit diagnosis, the need for outpatient follow up, to return to the emergency department if symptoms worsen or persist or if there are any questions or concerns that arise at home. Special discussion: Based on the history and exam findings, there is no indication for further emergent testing or inpatient evaluation. I discussed with the patient/guardian the need to see the primary care provider for further evaluation of the symptoms. 04/07 14:28 Order name: Strep snw 04/07 14:29 Order name: Group A Streptococcus Rapid Sc; Complete Time: 14:58 EDMS 04/07 14:57 Order name: Throat Culture EDMS Administered Medications: 15:30 Drug: UltRAM 50 mg {Note: RASS 0.} Route: PO; tw2 15:34 Follow up: Response: No adverse reaction; RASS: Alert and Calm (0) tw2 Disposition: 04/08 09:25 Co-signature as Attending Physician, Danis Mckeon MD I agree with the assessment and [facility] plan of care. Disposition: 04/07/20 15:15 Discharged to Home. Impression: Superficial injury of head, Concussion. - Condition is Stable. - Discharge Instructions: Concussion, Adult, Head Injury, Adult. - Prescriptions for Tylenol- Codeine #3 300-30 mg Oral Tablet - take 2 tablets by ORAL route every 6 hours As needed; 14 tablet. orphenadrine citrate 100 mg Oral Tablet Sustained Release - take 1 tablet by ORAL route 2 times per day As needed; 20 tablet. - Medication Reconciliation Form, Thank You Letter, Antibiotic Education, Prescription Opioid Use, Work release form form. - Follow up: Emergency Department; When: As needed; Reason: Worsening of condition. Follow up: Private Physician; When: 2 - 3 days; Reason: Recheck today's complaints, Continuance of care, Re-evaluation by your physician. Signatures: Dispatcher [employer] EDDanis Bustamante MD MD cha Waters, Shelly, DIRECTOR OF EXHIBITS-C DIRECTOR OF EXHIBITS-Csnw Farideh Astorga, RN RN iw Deanne Roque RN RN tw2 Corrections: (The following items were deleted from the chart) 04/07 15:35 15:15 04/07/2020 15:15 Discharged to Home. Impression: Superficial injury of head; tw2 Concussion. Condition is Stable. Forms are Work release form, Medication Reconciliation Form, Thank You Letter, Antibiotic Education, Prescription Opioid Use. Follow up: Emergency Department; When: As needed; Reason: Worsening of condition. Follow up: Private Physician; When: 2 - 3 days; Reason: Recheck today's complaints, Continuance of care, Re-evaluation by your physician. snw
[2020-04-07] MEDS ORDERED: TRAMADOL HCL 50 MG TAB ONE (15:43)
[2020-04-07 19:46] VITALS: TEMP 98.3
[2020-04-07 19:48] VITALS: BP 133/90; O2SAT 99
== END 2020-04-07 15:35 | disposition home or self-care (01) ==
LOC: ER 13:53
DX: S06.0X0A Concussion without loss of consciousness, initial encounter (principal); W22.8XXA Striking against or struck by other objects, initial encounter; Y93.9 Activity, unspecified; Y92.89 Other specified places as the place of occurrence of the external cause; I10 Essential (primary) hypertension
CPT/HCPCS: 87070; 87081; 99284